=== PATIENT | male | born 1960 ===

== ENCOUNTER 2024-08-05 07:06 | Day surgery (SDC) | payer BC, MEDICARE ==
[~2024-08-05] VITALS: Ht 182.9 cm; Wt 86.9 kg
[2024-08-05] MEDS ORDERED: ALBU90OI (07:15)
[2024-08-05] MEDS ORDERED: SERT50 PO (07:16)
[2024-08-05] MEDS ORDERED: propofoL 50 ML IV ONE (07:35)
[2024-08-05] MEDS ORDERED: Lactated Ringer's 1,000 ML IV ONE ×2 (07:35→08:17)
--- NOTE | 2024-08-05 10:21 | NUR ---
08/05/24 1021 Damari Collins [facility] [place].TCR VERBALIZED USING 8 ML OF NACL FOR POLYP REMOVAL.
== END 2024-08-05 09:58 | disposition home or self-care (01) ==
LOC: ORSCSDS 07:06
DX: K21.9 Gastro-esophageal reflux disease without esophagitis (principal); Z12.11 Encounter for screening for malignant neoplasm of colon; B96.81 Helicobacter pylori [H. pylori] as the cause of diseases classified elsewhere; K29.70 Gastritis, unspecified, without bleeding; D12.0 Benign neoplasm of cecum; D12.5 Benign neoplasm of sigmoid colon; K64.8 Other hemorrhoids; F41.9 Anxiety disorder, unspecified; Z79.899 Other long term (current) drug therapy
CPT/HCPCS: 88305; 88342; J2704; J7120